=== PATIENT | male | born 1985 | race African-American/Black ===

== ENCOUNTER 2021-06-13 20:35 | Emergency (ER) | payer OTHER ==
[~2021-06-13] VITALS: Ht 180.3 cm; Wt 75.0 kg
[2021-06-13 20:40] VITALS: BP 118/96
[2021-06-13] MEDS ORDERED: LIDOCAINE HCL/PF 1% 10 MG/ML 5ML VIAL INFIL ONE (21:00)
[2021-06-13] MEDS ORDERED: TETANUS, DIPHTHERIA, PERTUSSIS VAC/PF 0.5ML (>7YR OLD) IM ONE (21:45)
[2021-06-13] MEDS ORDERED: ACETAMINOPHEN 325MG TABLET PO ONE (21:45)
== END 2021-06-13 22:43 | disposition home or self-care (01) ==
LOC: ER 20:35 → EDBD 20:35 → ER 22:43
DX: S51.812A Laceration without foreign body of left forearm, initial encounter (principal); X99.1XXA Assault by knife, initial encounter; Y93.9 Activity, unspecified; Y92.9 Unspecified place or not applicable
CPT/HCPCS: 12002; 90471; 90715; 99283; J3490

== ENCOUNTER → 2021-06-28 | Emergency (ER) | payer SELFPAY ==
[~2021-06-28] VITALS: Ht 170.2 cm; Wt 52.0 kg
[~2021-06-28] MED LIST: BO1 TP
[2021-06-28 17:14] VITALS: BP 129/78
== END ==
LOC: ER 16:54
DX: R68.89 Other general symptoms and signs (principal); Z53.21 Procedure and treatment not carried out due to patient leaving prior to being seen by health care provider

== ENCOUNTER 2021-06-29 12:35 | Emergency (ER) | payer SELFPAY ==
[~2021-06-29] VITALS: Ht 170.2 cm; Wt 68.0 kg
[2021-06-29 13:22] VITALS: BP 110/71
[2021-06-29] MEDS ORDERED: BO1 TP (13:55)
== END 2021-06-29 14:04 | disposition home or self-care (01) ==
LOC: ER 12:41
DX: S51.812D Laceration without foreign body of left forearm, subsequent encounter (principal); Z79.899 Other long term (current) drug therapy; X58.XXXD Exposure to other specified factors, subsequent encounter
CPT/HCPCS: 99282

== ENCOUNTER 2021-07-05 12:00 | Emergency (ER) | payer SELFPAY ==
[~2021-07-05] VITALS: Ht 170.2 cm; Wt 66.0 kg
[2021-07-05 12:28] VITALS: BP 117/59
== END 2021-07-05 13:34 | disposition home or self-care (01) ==
LOC: ER 12:06
DX: S51.811D Laceration without foreign body of right forearm, subsequent encounter (principal); X58.XXXD Exposure to other specified factors, subsequent encounter
CPT/HCPCS: 99281; Z7610